=== PATIENT | male | born 1975 | race Caucasian/White ===

== ENCOUNTER → 2021-05-05 | Outpatient (CLI) | payer BC ==
--- NOTE | 2021-05-05 15:19 | REP ---
INDICATION: PAIN COMPARISON: None. TECHNIQUE: Internal rotation, external rotation, and Y view. FINDINGS: No evidence for acute fracture or dislocation. Cortical irregularity and spurring with small intra-articular calcification noted at the acromioclavicular joint. The subacromial space is normal. There is a smoothly marginated calcification measuring roughly 15 x 4 mm along the medial aspect of the proximal humeral metaphysis. The glenoid and humeral head are normal/age-appropriate. IMPRESSION: Degenerative changes as described above should be correlated with physical examination. <Electronically signed by Tenzin Lyons > 05/05/21 [id number]
== END ==
LOC: M WUC 14:56
PROVIDERS: ATTEND Physician Assistant Medical
DX: M25.511 Pain in right shoulder (principal)

== ENCOUNTER 2022-09-29 09:33 | Emergency (ER) | payer BC, SELFPAY ==
[~2022-09-29] VITALS: Ht 180.3 cm; Wt 112.7 kg
[~2022-09-29 09:33] MED LIST: HYDR-3713 PO; PENI500T PO
[2022-09-29] MEDS ORDERED: CLINDAMYCIN 900 MG in IV 1 EA IV ONE (11:20)
[2022-09-29] MEDS ORDERED: NS 1,000 ML IV ONE (11:20)
[2022-09-29 11:53] LABS: BASO % 0.4 % (0.0-1.0); EOS # 0.1 10^3/uL (0.0-0.5); EOS % 1.5 % (0.0-3.0); HEMATOCRIT 44.7 % (42.0-52.0); HEMOGLOBIN 15.3 g/dl (13.5-17.5); LYMPH # 1.6 10^3/uL (1.5-5.0); LYMPH % 19.6 % (24.0-44.0); MEAN CORPUSCULAR HEMOGLOBIN 29.9 pg (27.0-33.0); MEAN CORPUSCULAR HGB CONC 34.2 g/dl (32.0-36.5); MEAN CORPUSCULAR VOLUME 87.5 fl (80.0-96.0); MONO # 0.7 10^3/uL (0.0-0.8); MONO % 7.9 % (2.0-8.0); NEUTROPHILS # 5.8 10^3/uL (1.5-8.5); NEUTROPHILS % 70.4 % (36.0-66.0); PLATELET COUNT, AUTOMATED 208 10^3/uL (150-450); RED BLOOD COUNT 5.11 10^6/uL (4.30-6.10); WHITE BLOOD COUNT 8.3 10^3/uL (4.0-10.0)
[2022-09-29] MEDS ORDERED: ISOVUE-370 76% 100ML VIAL As Ordered ONE (12:56)
[2022-09-29] MEDS ORDERED: AMPICILLIN SOD/SULBACTAM SOD 3 GM in D5W MINI-BAG PLUS 100 ML IV ONE ×2 (14:10→20:05)
[2022-09-29] MEDS ORDERED: KETOROLAC 30 MG/ML 1ML VIAL IV ONE (15:20)
[2022-09-29] MEDS ORDERED: AMOX875T2 PO (20:12)
[2022-09-29 20:53] VITALS: BP 127/56
== END 2022-09-29 20:54 | disposition home or self-care (01) ==
LOC: M ED 09:33
DX: K02.9 Dental caries, unspecified (principal); L03.211 Cellulitis of face; Z79.2 Long term (current) use of antibiotics; Z79.1 Long term (current) use of non-steroidal anti-inflammatories (NSAID)
CPT/HCPCS: 70491; 80047; 85025; 86140; 96365; 96366; 96375; 99284; J0295; J1100; J1885; S0077

== ENCOUNTER → 2023-10-20 | Outpatient (REF) | payer SELFPAY, BC ==
[~2023-10-20] MED LIST changes: +AMOX875T2 PO
== END ==
LOC: M LAB REF 12:06
PROVIDERS: ATTEND Physician Assistant Medical
DX: R79.1 Abnormal coagulation profile (principal)

== ENCOUNTER → 2024-01-06 | Outpatient (REF) | payer BC | LOC: M LAB REF 16:55 | PROVIDERS: ATTEND Physician Assistant Medical | DX: L03.115 Cellulitis of right lower limb (principal); M25.571 Pain in right ankle and joints of right foot ==

== ENCOUNTER → 2024-04-20 | Outpatient (REF) | payer BC | LOC: M LAB REF 16:55 | PROVIDERS: ATTEND Physician Assistant Medical | DX: M25.571 Pain in right ankle and joints of right foot (principal) ==

== ENCOUNTER 2024-07-02 06:06 | Emergency (ER) | payer BC ==
[~2024-07-02] VITALS: Ht 180.3 cm; Wt 109.3 kg
[2024-07-02] MEDS: KETOROLAC 60MG 2ML VIAL IM ONE (08:17)
[2024-07-02 08:27] VITALS: BP 165/94; TEMP 97.3; O2SAT 95
== END 2024-07-02 08:39 | disposition home or self-care (01) ==
LOC: M ED 06:06
DX: M25.511 Pain in right shoulder (principal); W18.40XA Slipping, tripping and stumbling without falling, unspecified, initial encounter; Y92.009 Unspecified place in unspecified non-institutional (private) residence as the place of occurrence of the external cause; Y93.89 Activity, other specified; Y99.9 Unspecified external cause status; Z79.1 Long term (current) use of non-steroidal anti-inflammatories (NSAID); Z79.2 Long term (current) use of antibiotics
CPT/HCPCS: 73030; 96372; 99283; J1885